=== PATIENT | female | born 1980 | race Caucasian/White ===

== ENCOUNTER → 2017-11-18 | Outpatient (CLI) | payer MEDICARE ==
[~2017-11-18] MED LIST: AMOXICILLIN500 MG PO; Amoxicillin PO; METHADONE10 MG PO; METHadone HCl PO; MOTRIN100 MG PO; OXYCODONE HCL30 MG PO; PSEUDOEPHEDRINE30 MG PO; Phenergan PO; Sudafed PO; TIZANIDINE HCL4 M1 PO; ZANAFLEX4 MG PO; oxyCODONE PO
== END | disposition home or self-care (01) ==
LOC: CDC 12:34
DX: R00.0 Tachycardia, unspecified (principal); R94.31 Abnormal electrocardiogram [ECG] [EKG]
CPT/HCPCS: 93000